=== PATIENT | male | born 1980 | race Two or more races ===

== ENCOUNTER 2016-12-15 20:56 | Emergency (ER) | payer SELFPAY ==
[~2016-12-15] VITALS: Ht 182.9 cm; Wt 127.0 kg
[2016-12-15] MEDS ORDERED: IBUPROFEN 400 MG TABLET PO ONE (22:30)
[2016-12-15] MEDS ORDERED: DEXAMETHASONE SOD PHOSPHATE 4 MG/ML VIAL IV ONE (22:30)
[2016-12-15] MEDS ORDERED: IBUPROFEN 400 MG TABLET ONE (22:32)
[2016-12-15] MEDS ORDERED: DEXAMETHASONE SOD PHOSPHATE 10 MG/ML VIAL ONE (22:32)
[2016-12-15 23:12] VITALS: BP 132/85
== END 2016-12-15 23:13 | disposition home or self-care (01) ==
LOC: ER 20:58
DX: J06.9 Acute upper respiratory infection, unspecified (principal)
CPT/HCPCS: 99283; A4606; J1100; Z7610